=== PATIENT | female | born 1960 | race Caucasian/White ===

== ENCOUNTER → 2016-11-02 | Outpatient (REF) | payer OTHER ==
[2016-11-02 11:58] LABS: MEAN CORPUSCULAR HEMOGLOBIN 31.8 pg (27.0-33.0); MEAN CORPUSCULAR HGB CONC 33.5 g/dl (32.0-36.5); MEAN CORPUSCULAR VOLUME 94.9 fl (80.0-96.0); RED CELL DISTRIBUTION WIDTH 12.5 % (11.5-14.5); WHITE BLOOD COUNT 4.1 K/mm3 (4.0-10.0)
[2016-11-02 12:17] LABS: ALBUMIN 3.9 GM/DL (3.2-5.2); ALKALINE PHOSPHATASE 91 U/L (45-117); ALT/SGPT 18 U/L (12-78); ANION GAP 6 MEQ/L (8-16); AST/SGOT 16 U/L (15-37); BILIRUBIN,TOTAL 0.4 MG/DL (0.2-1.0); BLOOD UREA NITROGEN 16 MG/DL (7-18); CALCIUM LEVEL 8.9 MG/DL (8.5-10.1); CARBON DIOXIDE LEVEL 27 MEQ/L (21-32); CHLORIDE LEVEL 110 MEQ/L (98-107); CHOLESTEROL LEVEL 155 MG/DL (<200); CREATININE FOR GFR 0.87 MG/DL (0.55-1.02); FERRITIN 83 NG/ML (8-252); FREE T4 0.95 NG/DL (0.76-1.46); GLOMERULAR FILTRATION RATE > 60.0 (>51); GLUCOSE, FASTING 94 MG/DL (70-105); POTASSIUM SERUM 4.3 MEQ/L (3.5-5.1); SODIUM LEVEL 143 MEQ/L (136-145); TOTAL PROTEIN 6.5 GM/DL (6.4-8.2); TRIGLYCERIDES LEVEL 108 MG/DL (<150)
[2016-11-03 10:21] LABS: VITAMIN B12 LEVEL 208 PG/ML (247-911)
== END ==
LOC: M SFHCCLAY 07:01
PROVIDERS: ATTEND Family Medicine
DX: R53.83 Other fatigue (principal); I10 Essential (primary) hypertension

== ENCOUNTER → 2017-03-28 | Outpatient (REF) | payer OTHER | LOC: M SFHCCLAY 13:37 | PROVIDERS: ATTEND Family Medicine | DX: E55.9 Vitamin D deficiency, unspecified (principal); E53.8 Deficiency of other specified B group vitamins ==

== ENCOUNTER → 2017-06-20 | Outpatient (CLI) | payer OTHER ==
--- NOTE | 2017-06-20 15:39 | REPMRS ---
Patient History The patient states she had a clinical breast exam in 06/2017. Patient is postmenopausal. Family history of breast cancer in maternal aunt at age 50 or over and pancreatic cancer in paternal cousin. Digital Woman Screen Mammo: June 20, 2017 - Exam #: [id number] Bilateral CC and MLO view(s) were taken. Technologist: Rose Ramos, Technologist Prior study comparison: June 18, 2016, digital woman screen mammo performed at [facility] to [facility]. June 18, 2015, digital woman screen mammo performed at [facility] to [facility]. FINDINGS: There are scattered fibroglandular densities. There has been no change in the appearance of the mammogram from the prior studies. There is a mild amount of residual fibroglandular tissue which is fairly symmetric. There is no interval development of dominant mass, architectural distortion, or clustered microcalcification suggestive of malignancy. ASSESSMENT: BI-RADS/ACR category 1 mammogram. Negative. Recommendation Routine screening mammogram in 1 year (for women over age 40). This mammogram was interpreted with the aid of an FDA-approved computer-aided dectection system. Electronically Signed By: Murphy Rivera MD 06/20/17 0373
== END ==
LOC: M WHC 14:08
PROVIDERS: ATTEND Nurse Practitioner Family
DX: Z12.31 Encounter for screening mammogram for malignant neoplasm of breast (principal); Z78.0 Asymptomatic menopausal state

== ENCOUNTER → 2017-11-07 | Outpatient (REF) | payer OTHER ==
[2017-11-08 11:33] LABS: BASO % 0.6 % (0.0-1.0); EOS % 0.2 % (0.0-3.0); HEMATOCRIT 40.9 % (36.0-47.0); HEMOGLOBIN 13.2 g/dl (12.0-15.5); LYMPH # 1.5 10^3/uL (1.5-4.5); LYMPH % 28.7 % (24.0-44.0); MEAN CORPUSCULAR HGB CONC 32.3 g/dl (32.0-36.5); MONO # 0.3 10^3/uL (0.0-0.8); MONO % 5.9 % (0.0-5.0); NEUTROPHILS # 3.4 10^3/uL (1.8-7.7); NEUTROPHILS % 64.6 % (36.0-66.0); PLATELET COUNT, AUTOMATED 211 10^3/uL (150-450); RED BLOOD COUNT 4.26 10^6/uL (4.00-5.40); RED CELL DISTRIBUTION WIDTH 12.8 % (11.5-14.5); WHITE BLOOD COUNT 5.2 10^3/uL (4.0-10.0)
[2017-11-08 11:50] LABS: TOTAL 25(OH) VITAMIN D 20.8 NG/ML (30.0-100.0); VITAMIN B12 LEVEL 432 PG/ML (247-911)
[2017-11-08 11:51] LABS: ANION GAP 6 MEQ/L (8-16); BLOOD UREA NITROGEN 12 MG/DL (7-18); CALCIUM LEVEL 8.9 MG/DL (8.5-10.1); CARBON DIOXIDE LEVEL 26 MEQ/L (21-32); CHLORIDE LEVEL 110 MEQ/L (98-107); CREATININE FOR GFR 0.79 MG/DL (0.55-1.30); GLOMERULAR FILTRATION RATE > 60.0 (>51); GLUCOSE, FASTING 100 MG/DL (70-100); POTASSIUM SERUM 4.4 MEQ/L (3.5-5.1); SODIUM LEVEL 142 MEQ/L (136-145)
== END ==
LOC: M SFHCCLAY 14:08
DX: I10 Essential (primary) hypertension (principal); E53.8 Deficiency of other specified B group vitamins; E55.9 Vitamin D deficiency, unspecified; Z01.818 Encounter for other preprocedural examination
CPT/HCPCS: 82607

== ENCOUNTER → 2018-09-04 | Outpatient (REF) | payer OTHER | LOC: M SFHCWAGY 15:18 | PROVIDERS: ATTEND Nurse Practitioner Family | DX: Z12.4 Encounter for screening for malignant neoplasm of cervix (principal) ==

== ENCOUNTER → 2018-09-04 | Outpatient (CLI) | payer OTHER ==
--- NOTE | 2018-09-04 16:13 | REPMRS ---
Patient History The patient states she had a clinical breast exam in 08/2018. Patient is postmenopausal. Family history of breast cancer at age 50 or over in maternal aunt, pancreatic cancer in paternal cousin. No Hormone Replacement Therapy 3D TOMOSYNTHESIS WAS PERFORMED. Digital Woman Screen Mammo: September 04, 2018 - Exam #: [id number] Bilateral CC and MLO view(s) were taken. Technologist: Rose Ramos, Technologist Prior study comparison: June 20, 2017, digital woman screen mammo performed at [facility] to [facility]. June 18, 2016, digital woman screen mammo performed at [facility] to [facility]. FINDINGS: There are scattered fibroglandular densities. There is a fairly symmetric fibroglandular pattern in both breasts. There has been no interval development of masses, areas of architectural distortion or clusters of microcalcifications typical of malignancy. Assessment: BI-RADS/ACR category 2 mammogram. Benign Findings. Recommendation Routine screening mammogram of both breasts in 1 year (for women over age 40). This mammogram was interpreted with the aid of an FDA-approved computer-aided dectection system. Electronically Signed By: Murphy Rivera MD 09/04/18 [id number]
== END ==
LOC: M WHC 14:38
PROVIDERS: ATTEND Nurse Practitioner Family
DX: Z12.31 Encounter for screening mammogram for malignant neoplasm of breast (principal); Z78.0 Asymptomatic menopausal state

== ENCOUNTER → 2020-06-23 | Outpatient (CLI) | payer BC, OTHER ==
--- NOTE | 2020-06-23 16:22 | REP ---
INDICATION: ION SCR MAMMO. Family history of breast cancer in maternal aunt. COMPARISON: 08/27/2018 as well as other prior exams. TECHNIQUE: MLO and CC views of both breasts performed with tomosynthesis. FINDINGS: Mild scattered fibroglandular tissue appears unchanged. No new mass or architectural distortion is seen. There are tiny calcifications in the upper outer left breast. Recommend magnification views to further evaluate. The Volpara volumetric breast density pattern is B. IMPRESSION: BIRADS/ACR category 0 incomplete. Tiny calcifications in the upper outer left breast. Recommend magnification views to further evaluate. This patient's Tyrer-Cuzick lifetime breast cancer risk assessment score is 10.7%. This mammogram was interpreted with the aid of an FDA-approved computer-aided detection system. The patient states she had a clinical breast exam in June 2020. The patient letter being requested is M0. RECOMMENDATION: Recommend magnification views left breast to evaluate tiny calcifications in the upper outer quadrant. <Electronically signed by Murphy Rivera > 06/23/20 [id number]
== END ==
LOC: M WHC 15:02
PROVIDERS: ATTEND Nurse Practitioner Family
DX: R92.8 Other abnormal and inconclusive findings on diagnostic imaging of breast (principal); N60.02 Solitary cyst of left breast

== ENCOUNTER → 2020-07-11 | Outpatient (CLI) | payer BC, OTHER ==
--- NOTE | 2020-07-11 15:40 | REP ---
INDICATION: ADDL VIEWS/LEFT BREAST CALCIFICATIONS. COMPARISON: Comparison mammography June 20, 2017, September 04, 2018, and June 23, 2020. TECHNIQUE: Magnified focal spot-compression CC, mL, and MLO views of the left breast are obtained. FINDINGS: Diagnostic mammography of the left breast confirms the presence of a a grouping of predominantly punctate microcalcifications in the left breast at approximately 12 o'clock position middle 3rd. This consists of 4-5 punctate microcalcifications. These appear more numerous than on prior mammography. Scattered fibroglandular elements are seen. No cyst mass or spiculation is observed. No other finding. IMPRESSION: BIRADS/ACR category 4 suspicious left breast mammogram. biopsy recommended.. This patient's Tyrer-Cuzick lifetime breast cancer risk assessment score is 10.7%. This mammogram was interpreted with the aid of an FDA-approved computer-aided detection system. RECOMMENDATION: Stereotactic needle biopsy recommended left breast. Marker clip placement and post clip placement left breast mammography recommended.. The patient letter being requested is M4. <Electronically signed by Donell Dillard > 07/11/20 [id number]
== END ==
LOC: M WHC 14:54
PROVIDERS: ATTEND Nurse Practitioner Family
DX: Z12.31 Encounter for screening mammogram for malignant neoplasm of breast (principal); N60.12 Diffuse cystic mastopathy of left breast
CPT/HCPCS: 77065; G0279

== ENCOUNTER → 2020-10-16 | Outpatient (REF) | payer BC, OTHER ==
[2020-10-17 13:07] LABS: HEMATOCRIT 41.4 % (36.0-47.0); HEMOGLOBIN 13.1 g/dl (12.0-15.5); MEAN CORPUSCULAR HGB CONC 31.6 g/dl (32.0-36.5); MEAN CORPUSCULAR VOLUME 98.1 fl (80.0-96.0); PLATELET COUNT, AUTOMATED 243 10^3/uL (150-450); RED BLOOD COUNT 4.22 10^6/uL (4.00-5.40); WHITE BLOOD COUNT 6.7 10^3/uL (4.0-10.0)
[2020-10-17 13:16] LABS: BLOOD UREA NITROGEN 13 MG/DL (7-18); CALCIUM LEVEL 9.1 MG/DL (8.5-10.1); CARBON DIOXIDE LEVEL 30 MEQ/L (21-32); CHLORIDE LEVEL 107 MEQ/L (98-107); GLOMERULAR FILTRATION RATE > 60.0 (>51); GLUCOSE, FASTING 103 MG/DL (70-100); POTASSIUM SERUM 4.5 MEQ/L (3.5-5.1); SODIUM LEVEL 139 MEQ/L (136-145)
== END ==
LOC: M SFHCCLAY 15:26
PROVIDERS: ATTEND Family Medicine
DX: Z01.818 Encounter for other preprocedural examination (principal); D05.12 Intraductal carcinoma in situ of left breast; I11.9 Hypertensive heart disease without heart failure

== ENCOUNTER → 2021-02-11 | Outpatient (REF) | payer BC, OTHER | LOC: M SFHCCLAY 15:30 | PROVIDERS: ATTEND Family Medicine | DX: R23.9 Unspecified skin changes (principal) ==

== ENCOUNTER → 2021-08-26 | Outpatient (REF) | payer BC, OTHER | LOC: M SFHCWAGY 10:25 | PROVIDERS: ATTEND Nurse Practitioner Women's Health | DX: Z12.4 Encounter for screening for malignant neoplasm of cervix (principal) | CPT/HCPCS: 87624; G0123 ==

== ENCOUNTER → 2023-05-19 | Outpatient (CLI) | payer OTHER | LOC: M SLEEP HO 10:46 | PROVIDERS: ATTEND Nurse Practitioner Family | DX: R06.83 Snoring (principal); R53.83 Other fatigue ==

== ENCOUNTER → 2024-01-27 | Outpatient (REF) | payer OTHER | LOC: M SFHCDERM 17:15 | PROVIDERS: ATTEND Nurse Practitioner Family | DX: D22.60 Melanocytic nevi of unspecified upper limb, including shoulder (principal); D49.2 Neoplasm of unspecified behavior of bone, soft tissue, and skin ==